=== PATIENT | female | born 1950 | race Caucasian/White ===

== ENCOUNTER 2017-09-20 11:29 | Emergency (ER) | payer OTHER ==
[~2017-09-20] VITALS: Ht 175.3 cm; Wt 117.9 kg
--- NOTE | ~2017-09-20 | EKG ---
[address] [place] [address] ELECTROCARDIOGRAM REPORT Name: DAVID MARADIAGA [id number] Admission: 09/20/17 Attend Phys: Discharge: 09/20/17 Date of : 52 Report #: [id number] THIS REPORT FOR: //name// [facility] ED Test Date: 2017-09-20 Test Time: 11:47:17 Pat Name: DAVID MARADIAGA Department: Room: Gender: F Corporate Safety Coordinator: LYNETTETANVI : 1950 Requested By: Mariluz Tao Order Number: [id number] MD: Tha Landon Measurements Intervals [place] Rate: 81 P: 42 CT: 155 QRS: 14 QRSD: 98 T: 17 QT: 372 QTc: 432 Interpretive Statements Sinus rhythm Early R-wave progression No previous ECG available for comparison Electronically Signed On 09-20-2017 16:53:54 CDT by Tha Landon [email or web address] <ELECTRONICALLY SIGNED> By: Tha Landon MD, [facility] 09/20/17 1653 [id number] [id number] Tha Landon MD, FAC /EPI
[2017-09-20] MEDS ORDERED: LISINOPRIL20 MG PO (11:53)
[2017-09-20] MEDS ORDERED: ZOLPIDEM TARTR3.5 MG PO (11:54)
[2017-09-20 12:54] LABS: BASOPHILS 0.8 % (0.0-2.0); EOSINOPHILS 4.5 % (0.0-3.0); HEMATOCRIT 42.8 % (37.0-47.0); HEMOGLOBIN 14.2 gm/dL (12.0-15.0); LYMPHOCYTES 30.3 % (24.0-44.0); MCH 30.9 pg (26.0-34.0); MCHC 33.3 g/dL (28.0-37.0); MCV 92.8 fL (80.0-100.0); MONOCYTES 9.5 % (1.0-8.0); PLATELET COUNT 300 thou/uL (150-400); POLYS 54.9 % (36.0-66.0); RBC 4.61 mil/uL (4.20-5.00); RDW 13.5 % (10.5-14.5)
[2017-09-20 12:56] LABS: CALCIUM 9.5 mg/dL (8.5-10.1); POTASSIUM 3.9 mmol/L (3.5-5.1)
[2017-09-20 13:17] LABS: URINE BILIRUBIN NEGATIVE (Negative); URINE BLOOD NEGATIVE (Negative); URINE CLARITY SL CLOUDY; URINE COLOR YELLOW; URINE GLUCOSE-RANDOM* NEGATIVE (Negative); URINE KETONES NEGATIVE (Negative); URINE LEUKOCYTES-REFLEX NEGATIVE (Negative); URINE NITRITE-REFLEX NEGATIVE (Negative); URINE PROTEIN (DIPSTICK) NEGATIVE (Negative); URINE SPECIFIC GRAVITY <= 1.005 (1.005-1.035); URINE UROBILINOGEN 0.2 E.U./dl (0.2-1.0)
[2017-09-20 13:37] VITALS: BP 144/79
== END 2017-09-20 13:43 | disposition home or self-care (01) ==
LOC: ER 11:29
PROVIDERS: Emergency Medicine
DX: R00.2 Palpitations (principal); R53.1 Weakness; I10 Essential (primary) hypertension; Z96.653 Presence of artificial knee joint, bilateral; Z90.710 Acquired absence of both cervix and uterus; Z88.5 Allergy status to narcotic agent; Z88.2 Allergy status to sulfonamides; Z88.1 Allergy status to other antibiotic agents; Z88.8 Allergy status to other drugs, medicaments and biological substances